=== PATIENT | male | born 1950 | race Caucasian/White ===

== ENCOUNTER 2018-04-26 12:28 | Inpatient (IN) | payer OTHER ==
[2018-04-26 13:06] VITALS: BMI 21.8
--- NOTE | 2018-04-26 16:51 | HP ---
CIWA Score - Admission Criteria OASAS Guidelines: Admission for Medically Managed Detox: Requires at least one of the followin. CIWA greater than 12 2. Seizures within the past 24 hours 3. Delirium tremens within the past 24 hours 4. Hallucinations within the past 24 hours 5. Acute intervention needed for co occurring medical disorder 6. Acute intervention needed for co occurring psychiatric disorder 7. Severe withdrawal that cannot be handled at a lower level of care (continued vomiting, continued diarrhea, abnormal vital signs) requiring intravenous medication and/or fluids 8. Admission ROS [facility] Chief Complaint: "I was referred by the hospital to come to rehab" Allergies/Adverse Reactions: Allergies Allergy/AdvReac Type Severity Reaction Status Date / Time fish derived [Fish derived] Allergy Mild Hives Verified 04/26/18 15:16 No Known Drug Allergies Allergy Verified 04/26/18 15:16 History of Present Illness: Patient was discharged from the [facility] today after completing detox for alcohol, heroin, cocaine and THC. Patient reports he was referred by [facility] to attend rehab. Patient currently on Suboxone 8mg TID. I - stop reviewed last rx for Suboxone 8mg TID x 30 day supply dispensed 03/22/18, as per patient he has new rx at to fill at the pharmacy for current month. PMHX : Hep C, Liver Cirrhosis, HIV +, depression. Denies suicidal / homicidal ideation. Denies hx of suicide attempt. Denies hx seizures or blackouts. Exam Limitations: No Limitations - Ebola screening Have you traveled outside of the country in the last 21 days: No Have you had contact with anyone from an Ebola affected area: No Have you been sick,other than usual withdrawal symptoms: No - Review of Systems Constitutional: Loss of Appetite, Weakness, Unexplained wgt Loss (10lbs) EENT: reports: Dental Problems (poor dentition) Respiratory: reports: SOB with Exertion Cardiac: reports: No Symptoms Reported GI: reports: Nausea, Poor Appetite, Abdominal cramping : reports: Burning Musculoskeletal: reports: Back Pain Integumentary: reports: No Symptoms Reported Neuro: reports: Headache Endocrine: reports: No Symptoms Reported Hematology: reports: No Symptoms Reported Psychiatric: reports: Orientated x3, Anxious, Depressed Other Systems: Reviewed and Negative Patient History - Patient Medical History Hx Anemia: No Hx Asthma: Yes (Pt is on Albuterol IH prn) Hx Chronic Obstructive Pulmonary Disease (COPD): No Hx Cancer: No Hx Cardiac Disorders: No Hx Congestive Heart Failure: No Hx Hypertension: No Hx Hypercholesterolemia: No Hx Pacemaker: No HX Cerebrovascular Accident: No Hx Seizures: No Hx Dementia: No Hx Diabetes: No Hx Gastrointestinal Disorders: No Hx Liver Disease: Yes (cirrhosis) Hx Genitourinary Disorders: No Hx Sexually Transmitted Disorders: Yes (HIV+) Hx Renal Disease (ESRD): No Hx Thyroid Disease: Yes (? hypothyroid ) Hx Human Immunodeficiency Virus (HIV): Yes (since 1989, t cells about 436, Biktarvy) Hx Hepatitis C: Yes (treated ) Hx Depression: Yes Hx Suicide Attempt: No Hx Bipolar Disorder: No Hx Schizophrenia: No - Patient Surgical History Past Surgical History: No Hx Neurologic Surgery: No Hx Cataract Extraction: No Hx Cardiac Surgery: No Hx Lung Surgery: No Hx Breast Surgery: No Hx Breast Biopsy: No Hx Abdominal Surgery: No Hx Appendectomy: No Hx Cholecystectomy: No Hx Genitourinary Surgery: No Hx Section: No Hx Orthopedic Surgery: Yes (fractured right foot 04/2014 - 4 pins) Hx Hysterectomy: No Anesthesia Reaction: No - PPD History Documented Results: Negative w/o proof Date: 04/28/14 PPD to be Administered?: No - Smoking Cessation Smoking history: Current every day smoker Have you smoked in the past 12 months: Yes Aproximately how many cigarettes per day: 20 Cigars Per Day: 0 Hx Chewing Tobacco Use: No Initiated information on smoking cessation: Yes 'Breaking Loose' booklet given: 04/26/18 - Substance & Tx. History Hx Alcohol Use: Yes Hx Substance Use: Yes Substance Use Type: Alcohol, Cocaine, Heroin Hx Substance Use Treatment: Yes (Completed detox [facility] ) - Substances Abused Heroin Route: Injection Frequency: Daily Amount used: 4 BAGS Age of first use: 17 Date of Last Use: 04/23/18 Cocaine Route: Injection Frequency: Daily Amount used: 5-6 BAGS Age of first use: 17 Date of Last Use: 04/23/18 Alcohol Route: Oral Frequency: 3-6 times per week Amount used: 1 PINT OF DAVID Age of first use: 28 Date of Last Use: 04/23/18 Family Disease History - Family Disease History Family Disease History: Other: Father (alcohol) Admission Physical Exam BHS - Vital Signs Vital Signs: Vital Signs - 24 hr 04/26/18 12:59 Temperature 98.5 F Pulse Rate 81 Respiratory 18 Rate Blood Pressure 132/74 - Physical General Appearance: Yes: Appropriately Dressed, Thin, Anxious HEENTM: Yes: EOMI, Hearing grossly Normal, Normal ENT Inspection, Normocephalic , Normal Voice, ANGEL, Pharynx Normal, Tm's normal, Other (poor dentition) Respiratory: Yes: Chest Non-Tender, Lungs Clear, Normal Breath Sounds, No Respiratory Distress, No Accessory Muscle Use Neck: Yes: Within Normal Limits Breast: Yes: Breast Exam Deferred Cardiology: Yes: Regular Rhythm, Regular Rate Abdominal: Yes: Normal Bowel Sounds, Non Tender, Flat, Soft Genitourinary: Yes: Within Normal Limits Back: Yes: Normal Inspection Musculoskeletal: Yes: Within Normal Limits Extremities: Yes: Within Normal Limits 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: Yes: licensed nursing assistant II-XII NML intact, Fully Oriented, Alert, Motor Strength 5/5, Depressed Affect Integumentary: Yes: Normal Color, Dry, Warm Lymphatic: Yes: Within Normal Limits - Diagnostic (1) Opioid dependence on agonist therapy Current Visit: Yes Status: Chronic Comment: on Suboxone 8mg-2mg SL film TID (2) Alcohol dependence Current Visit: Yes Status: Active (3) cocaine dependence Current Visit: Yes Status: Active (4) Asthma Current Visit: Yes Status: Chronic Qualifiers: Asthma severity: mild Asthma persistence: intermittent Asthma complication type: uncomplicated Qualified Code(s): J45.20 - Mild intermittent asthma, uncomplicated (5) Hepatitis C Current Visit: Yes Status: Chronic Qualifiers: Viral hepatitis chronicity: chronic (6) Nicotine dependence Current Visit: Yes Status: Chronic Qualifiers: Nicotine product type: cigarettes (7) Recent weight loss Current Visit: Yes Status: Chronic (8) HIV (human immunodeficiency virus infection) Current Visit: Yes Status: Chronic Qualifiers: HIV symptom status: unspecified Qualified Code(s): B20 - Human immunodeficiency virus [HIV] disease BHS Breath Alcohol Content Breath Alcohol Content: 0 Urine Drug Screen - Results Drug Screen Negative: No Urine Drug Screen Results: BUP-Suboxone Inpatient Rehab Admission - Rehab Decision to Admit Inpatient rehab admission?: Yes - Initial Determination Are CD services needed?: Yes Free of communicable disease: Yes Not in need of hospitalization: Yes - Rehab Admission Criteria Previous failed treatment: Yes Poor recovery environment: Yes Comorbidities: Yes Lacks judgement: Yes Patient is meeting Inpatient Rehab admission criteria:: Yes
[2018-04-26] MEDS ORDERED: ALBUTEROL SO4 8 GM HFA INHALER IH PRN (18:23)
[2018-04-26] MEDS ORDERED: IBUPROFEN 400 MG TABLET (FP) PO PRN (18:49)
[2018-04-26] MEDS ORDERED: NICOTINE POLACRILEX 2 MG GUM BC PRN (18:49)
[2018-04-26] MEDS ORDERED: MAGNESIUM CITRATE 300 ML BOTTLE PO PRN (18:49)
[2018-04-26] MEDS ORDERED: MENTHOL/PHENOL 1 EACH UD MM PRN (18:49)
[2018-04-26] MEDS ORDERED: MAGNESIUM HYDROX 2400MG/30ML ORAL SUSPENSION 30 ML CUP PO PRN (18:49)
[2018-04-26] MEDS ORDERED: hydrOXYzine PAMOATE 50 MG CAPSULE (FP) PO PRN (18:49)
[2018-04-26] MEDS ORDERED: MAG HYDROX/AL HYDROX/SIMETH 30 ML UNIT-DOSE CUP PO PRN (18:49)
[2018-04-26] MEDS ORDERED: LOPERAMIDE HCL 2 MG CAPSULE PO PRN (18:49)
[2018-04-26] MEDS ORDERED: ACETAMINOPHEN 325 MG TABLET (FP) PO PRN (18:49)
[2018-04-26] MEDS ORDERED: P-EPHED 60MG/TRIPROLIDI 2.5MG TABLET PO PRN (18:49)
[2018-04-26] MEDS: THIAMINE HCL 100 MG TABLET (FP) PO SCH (21:37)
[2018-04-26] MEDS: MELATONIN 5 MG TABLETS PO PRN (22:57)
[2018-04-26 23:08] LABS: URINE APPEARANCE CLEAR; URINE BILIRUBIN NEGATIVE (<2.0 mg/dL); URINE COLOR YELLOW; URINE GLUCOSE (UA) NEGATIVE (NEGATIVE); URINE KETONE NEGATIVE (NEGATIVE); URINE LEUK ESTERASE NEGATIVE (NEGATIVE); URINE NITRITE NEGATIVE (NEGATIVE); URINE PROTEIN NEGATIVE (NEGATIVE); URINE UROBILINOGEN NEGATIVE mg/dL (0.2-1.0)
[2018-04-27] MEDS: BUPRENORPHINE/NALOXONE 8 MG/2 MG FILM PACKET SL SCH ×3 (06:26→21:42)
[2018-04-27] MEDS: NICOTINE 21 MG/24 HOURS TOPICAL PATCH TD SCH (10:45)
[2018-04-27] MEDS: PRENATAL VITAMINS W/ FOLIC ACID TABLET (FP) PO SCH (10:45)
[2018-04-27] MEDS: guaiFENesin/D-METHORPHAN HB 10 ML UNIT-DOSE CUPS PO PRN ×2 (10:46→23:31)
--- NOTE | 2018-04-27 11:35 | PN ---
[facility] Progress Note Note: PT IS A 67 Y/O MALE ADMITTED ON 04/26/18(SEE H/P). PT REPORTS HE IS ON HIV MEDICATION BIKTARVY 50-200-25 MG WHICH HE REPORTS LAST DOSE ON 04/21/18 BEFORE GOING INTO DETOX AT [facility] ON 04/22/18. PT REPORTS HE IS COMPLIANT WITH HIS MEDICATION EXCEPT HE DID NOT GET IT IN DETOX DUE TO AVAILABILITY. THIS MARINE EQUIPMENT DESIGN ENGINEER CALLED PT'S HOME PHARMACY, [facility] AND [facility] AND SAYS PT HAS RX FOR BICTARVY WAITING IN HIS PHARMACY SINCE 04/26/18. PT ALSO HAS SUBOXONE RX POSTED IN PHARMACY ON . PT WILL DYE WEIGHER FROM HIS PHARMACY AND NOT BE NEEDING RX ON DISCHARGE. Vital Signs 04/27/18 06:46 Temperature 97.8 F Pulse Rate 89 Respiratory 17 Rate Blood Pressure 118/71 Laboratory Tests 04/26/18 22:00 Urine Color Yellow Urine Appearance Clear Urine pH 8.0 D Ur Specific [place] 1.015 Urine Protein Negative Urine Glucose (UA) Negative Urine Ketones Negative Urine Blood Negative Urine Nitrite Negative Urine Bilirubin Negative Urine Urobilinogen Negative Ur Leukocyte Esterase Negative OTHER LABS PENDING PLAN:FOLLOW UP WITH PCP GEMINI JUAN FOR SUBOXONE TREATMENT AFTER DISCHARGE PH:[phone] FOLLOW UP WITH PCP/ [facility] NEEDED.
[2018-04-27 12:19] LABS: HEMOGLOBIN 13.2 GM/dL (11.7-16.9); MCH 30.8 pg (25.7-33.7); MCHC 33.9 g/dl (32.0-35.9); MEAN CELL VOLUME 90.9 fl (80-96); MEAN PLT VOLUME 8.4 fl (7.5-11.1); PLATELET COUNT 188 K/MM3 (134-434); RDW 13.1 % (11.9-15.9); WHITE BLOOD COUNT 3.9 K/mm3 (4.0-10.0)
[2018-04-27 12:34] LABS: ALBUMIN 3.9 g/dl (3.4-5.0); ALK PHOS 99 U/L (45-117); ANION GAP 8 MMOL/L (8-16); BILIRUBIN,TOTAL 0.2 mg/dL (0.2-1); BLOOD UREA NITROGEN 24 mg/dL (7-18); CALCIUM 9.3 mg/dL (8.5-10.1); CHLORIDE 104 mmol/L (98-107); CO2 29 mmol/L (21-32); CREATININE 1.3 mg/dL (0.55-1.3); GLUCOSE,RANDOM 114 mg/dL (74-106); POTASSIUM 4.1 mmol/L (3.5-5.1); SGOT/AST 22 U/L (15-37); SGPT/ALT 22 U/L (13-61); SODIUM 141 mmol/L (136-145); TOT PROT 7.8 g/dl (6.4-8.2)
[2018-04-27] MEDS: BICTEGRAV/EMTRICIT/TENOFOV (BIKTARVY) 50-200-25 MG TABLET PO SCH (12:50)
--- NOTE | 2018-04-27 16:47 | EKG ---
Test Reason : Blood Pressure : / mmHG Vent. Rate : 092 BPM Atrial Rate : 092 BPM P-R Int : 164 ms QRS Dur : 090 ms QT Int : 344 ms P-R-T Axes : 072 010 064 degrees QTc Int : 425 ms NORMAL SINUS RHYTHM NORMAL ECG NO PREVIOUS ECGS AVAILABLE Confirmed by DORETHA VILLALOBOS MD ([id number]) on 04/27/2018 4:47:20 PM Referred By: Confirmed By:DORETHA VILLALOBOS MD
[2018-04-27] MEDS: THIAMINE HCL 100 MG TABLET (FP) PO SCH (21:42)
[2018-04-28] MEDS: BUPRENORPHINE/NALOXONE 8 MG/2 MG FILM PACKET SL SCH ×3 (06:14→21:34)
[2018-04-28] MEDS: BICTEGRAV/EMTRICIT/TENOFOV (BIKTARVY) 50-200-25 MG TABLET PO SCH (10:14)
[2018-04-28] MEDS: PRENATAL VITAMINS W/ FOLIC ACID TABLET (FP) PO SCH (10:14)
[2018-04-28] MEDS: NICOTINE 21 MG/24 HOURS TOPICAL PATCH TD SCH (10:14)
[2018-04-28] MEDS: THIAMINE HCL 100 MG TABLET (FP) PO SCH (21:34)
[2018-04-28] MEDS: MELATONIN 5 MG TABLETS PO PRN (21:35)
[2018-04-29] MEDS: BUPRENORPHINE/NALOXONE 8 MG/2 MG FILM PACKET SL SCH ×3 (06:29→22:00)
[2018-04-29] MEDS: [UNRECOGNIZED DRUG - OTHER] PO SCH (10:16)
[2018-04-29] MEDS: NICOTINE 21 MG/24 HOURS TOPICAL PATCH TD SCH (10:16)
[2018-04-29] MEDS: PRENATAL VITAMINS W/ FOLIC ACID TABLET (FP) PO SCH (10:16)
[2018-04-29] MEDS: THIAMINE HCL 100 MG TABLET (FP) PO SCH (22:00)
[2018-04-30] MEDS: BUPRENORPHINE/NALOXONE 8 MG/2 MG FILM PACKET SL SCH ×3 (06:20→21:46)
[2018-04-30 07:11] VITALS: BP 139/84; PULSE 71; TEMP 98.3
[2018-04-30] MEDS: NICOTINE 21 MG/24 HOURS TOPICAL PATCH TD SCH (10:23)
[2018-04-30] MEDS: PRENATAL VITAMINS W/ FOLIC ACID TABLET (FP) PO SCH (10:23)
[2018-04-30] MEDS: [UNRECOGNIZED DRUG - OTHER] PO SCH (10:24)
[2018-04-30] MEDS: MELATONIN 5 MG TABLETS PO PRN (21:45)
[2018-04-30] MEDS: THIAMINE HCL 100 MG TABLET (FP) PO SCH (21:46)
[2018-05-01] MEDS: BUPRENORPHINE/NALOXONE 8 MG/2 MG FILM PACKET SL SCH (06:10)
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
== END 2018-05-01 06:45 | disposition home or self-care (01) | DRG 895 ==
LOC: YASAS 12:28 → Y5N 18:03
PROVIDERS: ADMIT Neuromusculoskeletal Medicine & OMM; ATTEND Neuromusculoskeletal Medicine & OMM
PROC: HZ42ZZZ Group Counseling for Substance Abuse Treatment, Cognitive-Behavioral (ICD-10-PCS; principal; 2018-04-24)
DX: F10.20 Alcohol dependence, uncomplicated (principal); F11.20 Opioid dependence, uncomplicated; F14.20 Cocaine dependence, uncomplicated; B20 Human immunodeficiency virus [HIV] disease; F17.210 Nicotine dependence, cigarettes, uncomplicated; J45.20 Mild intermittent asthma, uncomplicated; B18.2 Chronic viral hepatitis C; Z91.013 Allergy to seafood
CPT/HCPCS: 36415; 80053; 81003; 85027; 86593; 93005; 93010

== ENCOUNTER 2018-08-09 12:26 | Inpatient (IN) | payer OTHER | END 2018-08-12 12:50 | disposition left against medical advice (07) | LOC: YASAS 12:26 → Y6N 16:59 ==

== ENCOUNTER 2018-08-29 14:27 | Inpatient (IN) | payer OTHER ==
[2018-08-29 16:56] VITALS: BMI 19.9
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
[2018-08-29] MEDS ORDERED: chlordiazePOXIDE HCL 25 MG CAPSULE PO PRN (20:36)
[2018-08-29] MEDS ORDERED: MAG HYDROX/AL HYDROX/SIMETH 30 ML UNIT-DOSE CUP PO PRN (20:36)
[2018-08-29] MEDS ORDERED: hydrOXYzine PAMOATE 25 MG CAPSULE (FP) PO PRN (20:36)
[2018-08-29] MEDS ORDERED: IBUPROFEN 400 MG TABLET (FP) PO PRN (20:36)
[2018-08-29] MEDS ORDERED: METHOCARBAMOL 500 MG TABLET PO PRN (20:36)
[2018-08-29] MEDS ORDERED: ACETAMINOPHEN 325 MG TABLET (FP) PO PRN ×2 (20:36)
[2018-08-29] MEDS ORDERED: BISMUTH SUBSALICYLATE 524 MG/30 ML UD PO PRN (20:36)
[2018-08-29] MEDS ORDERED: MENTHOL/PHENOL 1 EACH UD MM PRN (20:36)
[2018-08-29] MEDS ORDERED: MAGNESIUM HYDROX 2400MG/30ML ORAL SUSPENSION 30 ML CUP PO PRN (20:36)
[2018-08-29] MEDS ORDERED: chlordiazePOXIDE HCL 25 MG CAPSULE PO ONE (20:36)
[2018-08-29] MEDS ORDERED: MAGNESIUM CITRATE 300 ML BOTTLE PO PRN (20:36)
[2018-08-29] MEDS ORDERED: ALBUTEROL SO4 8 GM HFA INHALER IH PRN (20:38)
[2018-08-29] MEDS: chlordiazePOXIDE HCL 25 MG CAPSULE PO SCH (22:34)
[2018-08-29] MEDS: THIAMINE HCL 100 MG TABLET (FP) PO SCH (22:34)
[2018-08-30] MEDS: chlordiazePOXIDE HCL 25 MG CAPSULE PO SCH ×4 (06:05→22:20)
--- NOTE | 2018-08-30 09:58 | PN ---
S CIWA - CIWA Score Nausea/Vomitin-No Nausea/No Vomiting Muscle Tremors: 4-Moderate,w/Arms Extend Anxiety: 2 Agitation: 3 Paroxysmal Sweats: 2 Orientation: 0-Oriented Tacttile Disturbances: 0-None Auditory Disturbances: 0-None Visual Disturbances: 0-None Headache: 0-None Present CIWA-Ar Total Score: 11 S Progress Note (SOAP) Subjective: sweats shakes interrupted sleep body aches Objective: 08/30/18 09:57 Vital Signs Temperature 97.9 F 08/30/18 09:40 Pulse Rate 77 08/30/18 09:40 Respiratory Rate 16 08/30/18 09:40 Blood Pressure 101/55 L 08/30/18 09:40 O2 Sat by Pulse Oximetry (%) labs pending aaox3 ambulating no acute distress Assessment: 08/30/18 09:58 withdrawal sx Plan: continue detox increase fluids pending labs
[2018-08-30] MEDS: PATIENT'S OWN MEDICATION (NON-FORMULARY) (Bictegrav/Emtricit/Tenofov Ala 1 EACH) PO SCH (10:12)
[2018-08-30] MEDS: NICOTINE 21 MG/24 HOURS TOPICAL PATCH TD SCH (10:12)
[2018-08-30] MEDS: PRENATAL VITAMINS W/ FOLIC ACID TABLET (FP) PO SCH (10:12)
[2018-08-30 12:32] LABS: HEMATOCRIT 41.7 % (35.4-49); HEMOGLOBIN 13.9 GM/dL (11.7-16.9); MCH 29.9 pg (25.7-33.7); MCHC 33.3 g/dl (32.0-35.9); MEAN CELL VOLUME 89.9 fl (80-96); RBC 4.63 M/mm3 (4.00-5.60); RDW 14.4 % (11.9-15.9); WHITE BLOOD COUNT 3.6 K/mm3 (4.0-10.0)
[2018-08-30 12:35] LABS: PLATELET COUNT 183 K/MM3 (134-434)
[2018-08-30 12:38] LABS: ALBUMIN 3.6 g/dl (3.4-5.0); BILIRUBIN,TOTAL 0.4 mg/dL (0.2-1); BLOOD UREA NITROGEN 11.8 mg/dL (7-18); CALCIUM 9.1 mg/dL (8.5-10.1); CREATININE 1.2 mg/dL (0.55-1.3); POTASSIUM 4.3 mmol/L (3.5-5.1)
[2018-08-30 18:10] LABS: EPI CELLS 1.1 /HPF (0-5/HPF); HYALINE CASTS 20 /lpf (0-8); URINE APPEARANCE TURBID; URINE BACTERIA 2.5 /hpf (NEGATIVE); URINE BILIRUBIN 1+ (NEGATIVE); URINE COLOR DK YELLOW; URINE GLUCOSE (UA) NEGATIVE (NEGATIVE); URINE KETONE TRACE (NEGATIVE); URINE LEUK ESTERASE NEGATIVE (NEGATIVE); URINE NITRITE NEGATIVE (NEGATIVE); URINE PROTEIN 1+ (NEGATIVE); URINE RBC 8 /hpf (0-4); URINE WBC 1 /hpf (0-5)
[2018-08-30 18:57] LABS: URINE CRYSTALS SEE COMMEN /hpf
[2018-08-30] MEDS: MELATONIN 5 MG TABLETS PO PRN (22:20)
[2018-08-30] MEDS: THIAMINE HCL 100 MG TABLET (FP) PO SCH (22:21)
[2018-08-31] MEDS: chlordiazePOXIDE HCL 25 MG CAPSULE PO SCH ×3 (05:52→17:33)
[2018-08-31] MEDS: PRENATAL VITAMINS W/ FOLIC ACID TABLET (FP) PO SCH (10:42)
[2018-08-31] MEDS: NICOTINE 21 MG/24 HOURS TOPICAL PATCH TD SCH (10:42)
[2018-08-31] MEDS: PATIENT'S OWN MEDICATION (NON-FORMULARY) (Bictegrav/Emtricit/Tenofov Ala 1 EACH) PO SCH (10:43)
[2018-08-31] MEDS ORDERED: ONDANSETRON *ODT* 4 MG TABLET SL PRN (11:09)
--- NOTE | 2018-08-31 11:09 | PN ---
[facility] CIWA - CIWA Score Nausea/Vomitin-No Nausea/No Vomiting Muscle Tremors: 3 Anxiety: 1-Mildly Anxious Agitation: 2 Paroxysmal Sweats: 3 Orientation: 0-Oriented Tacttile Disturbances: 0-None Auditory Disturbances: 0-None Visual Disturbances: 0-None Headache: 0-None Present CIWA-Ar Total Score: 9 S Progress Note (SOAP) Subjective: nausea sweats chills interrupted sleep Objective: 08/31/18 11:08 Vital Signs Temperature 98.1 F 08/31/18 09:30 Pulse Rate 63 08/31/18 09:30 Respiratory Rate 18 08/31/18 09:30 Blood Pressure 119/74 08/31/18 09:30 O2 Sat by Pulse Oximetry (%) Laboratory Tests 08/30/18 08/30/18 08/30/18 07:30 07:30 07:30 WBC 3.6 L RBC 4.63 Hgb 13.9 Hct 41.7 MCV 89.9 MCH 29.9 MCHC 33.3 RDW 14.4 Plt Count 183 D MPV 8.0 Sodium 140 Potassium 4.3 Chloride 106 Carbon Dioxide 31 Anion Gap 4 L BUN 11.8 Creatinine 1.2 Est GFR (CKD-EPI)AfAm 72.59 Est GFR (CKD-EPI)NonAf 62.63 Random Glucose 82 Calcium 9.1 Total Bilirubin 0.4 AST 21 ALT 18 Alkaline Phosphatase 111 Total Protein 7.0 Albumin 3.6 Urine Color Urine Appearance Urine pH Ur Specific [place] Urine Protein Urine Glucose (UA) Urine Ketones Urine Blood Urine Nitrite Urine Bilirubin Urine Urobilinogen Ur Leukocyte Esterase Urine WBC (Auto) Urine RBC (Auto) Urine Casts (Auto) U Epithel Cells (Auto) Urine Crystals (Auto) Urine Bacteria (Auto) RPR Titer Nonreactive 08/30/18 11:07 WBC RBC Hgb Hct MCV MCH MCHC RDW Plt Count MPV Sodium Potassium Chloride Carbon Dioxide Anion Gap BUN Creatinine Est GFR (CKD-EPI)AfAm Est GFR (CKD-EPI)NonAf Random Glucose Calcium Total Bilirubin AST ALT Alkaline Phosphatase Total Protein Albumin Urine Color Dk yellow Urine Appearance Turbid Urine pH 5.0 D Ur Specific [place] 1.029 Urine Protein 1+ H Urine Glucose (UA) Negative Urine Ketones Trace H Urine Blood Negative Urine Nitrite Negative Urine Bilirubin 1+ H Urine Urobilinogen 1.0 Ur Leukocyte Esterase Negative Urine WBC (Auto) 1 Urine RBC (Auto) 8 Urine Casts (Auto) 20 U Epithel Cells (Auto) 1.1 Urine Crystals (Auto) See commen Urine Bacteria (Auto) 2.5 RPR Titer labs noted aaox3 ambulating no acute distress repeat u/a Assessment: 08/31/18 11:09 withdrawal sx Plan: continue detox increase fluids zofran prn repeat u/a
[2018-08-31] MEDS: MELATONIN 5 MG TABLETS PO PRN (22:04)
[2018-08-31] MEDS: chlordiazePOXIDE HCL 10 MG CAPSULE PO SCH (22:04)
[2018-08-31] MEDS: THIAMINE HCL 100 MG TABLET (FP) PO SCH (22:04)
[2018-08-31] MEDS ORDERED: chlordiazePOXIDE HCL 10 MG CAPSULE PO PRN (23:00)
[2018-09-01] MEDS: chlordiazePOXIDE HCL 10 MG CAPSULE PO SCH (06:03)
[2018-09-01 06:19] VITALS: TEMP 97.2
--- NOTE | 2018-09-01 09:10 | DS ---
[facility] Detox Discharge Summary Admission Date: 08/29/18 - Physical Exam Results Vital Signs: Vital Signs Temperature 97.2 F L 09/01/18 06:00 Pulse Rate 63 09/01/18 06:00 Respiratory Rate 16 09/01/18 06:00 Blood Pressure 133/71 09/01/18 06:00 O2 Sat by Pulse Oximetry (%) - Medication Discharge Medications: Ambulatory Orders Albuterol Sulfate Inhaler - [Ventolin HFA Inhaler -] 1 inh IH Q4H PRN #1 inh Bictegrav/Emtricit/Tenofov Ala [Biktarvy 50-200-25 mg Tablet] 1 each PO DAILY
--- NOTE | 2018-09-01 09:15 | DS ---
[facility] Detox Discharge Summary Admission Date: 08/29/18 Discharge Date: 09/01/18 - History Present History: Alcohol Dependence, Opioid Dependence - Physical Exam Results Vital Signs: Vital Signs Temperature 97.2 F L 09/01/18 06:00 Pulse Rate 63 09/01/18 06:00 Respiratory Rate 16 09/01/18 06:00 Blood Pressure 133/71 09/01/18 06:00 O2 Sat by Pulse Oximetry (%) - Treatment Hospital Course: Detox Protocol Followed - Medication Discharge Medications: Ambulatory Orders Albuterol Sulfate Inhaler - [Ventolin HFA Inhaler -] 1 inh IH Q4H PRN #1 inh Bictegrav/Emtricit/Tenofov Ala [Biktarvy 50-200-25 mg Tablet] 1 each PO DAILY - Diagnosis (1) Alcohol dependence with uncomplicated withdrawal Current Visit: No Status: Chronic (2) Opioid dependence with withdrawal Current Visit: No Status: Acute (3) cocaine dependence Current Visit: Yes Status: Acute (4) HIV (human immunodeficiency virus infection) Current Visit: Yes Status: Chronic Qualifiers: HIV symptom status: unspecified Qualified Code(s): B20 - Human immunodeficiency virus [HIV] disease (5) Hepatitis C Current Visit: Yes Status: Chronic Qualifiers: Viral hepatitis chronicity: chronic Hepatic coma status: without hepatic coma Qualified Code(s): B18.2 - Chronic viral hepatitis C (6) Nicotine dependence Current Visit: Yes Status: Chronic Qualifiers: Nicotine product type: cigarettes Substance use status: uncomplicated Qualified Code(s): F17.210 - Nicotine dependence, cigarettes, uncomplicated - AMA Did Patient Leave Against Medical Advice: Yes (Pt states he can't handle thew food and is not coming back. )
[2018-09-01] MEDS: PRENATAL VITAMINS W/ FOLIC ACID TABLET (FP) PO SCH (09:36)
[2018-09-01] MEDS: PATIENT'S OWN MEDICATION (NON-FORMULARY) (Bictegrav/Emtricit/Tenofov Ala 1 EACH) PO SCH (09:37)
[2018-09-01] MEDS: NICOTINE 21 MG/24 HOURS TOPICAL PATCH TD SCH (09:37)
[2018-09-01 09:44] VITALS: BP 132/73; PULSE 76
[2018-09-01 10:29] LABS: EPI CELLS 0.1 /HPF (0-5/HPF); HYALINE CASTS 4 /lpf (0-8); URINE APPEARANCE CLEAR; URINE BACTERIA 21.8 /hpf (NEGATIVE); URINE BILIRUBIN NEGATIVE (NEGATIVE); URINE COLOR YELLOW; URINE GLUCOSE (UA) NEGATIVE (NEGATIVE); URINE KETONE NEGATIVE (NEGATIVE); URINE LEUK ESTERASE 2+ (NEGATIVE); URINE NITRITE NEGATIVE (NEGATIVE); URINE PROTEIN NEGATIVE (NEGATIVE); URINE RBC 1 /hpf (0-4); URINE UROBILINOGEN 0.2 mg/dL (0.2-1.0); URINE WBC 33 /hpf (0-5)
[2018-09-01 10:51] LABS: URINE CRYSTALS CA OXALATE /hpf
[2018-09-01] MEDS ORDERED: chlordiazePOXIDE HCL 10 MG CAPSULE PO SCH (23:00)
== END 2018-09-01 09:58 | disposition left against medical advice (07) | DRG 894 ==
LOC: YASAS 14:27 → Y6N 21:35
PROVIDERS: ADMIT Surgery; ATTEND Surgery
PROC: HZ2ZZZZ Detoxification Services for Substance Abuse Treatment (ICD-10-PCS; principal; 2018-08-29)
DX: F10.230 Alcohol dependence with withdrawal, uncomplicated (principal); F14.20 Cocaine dependence, uncomplicated; F11.23 Opioid dependence with withdrawal; F12.20 Cannabis dependence, uncomplicated; F17.210 Nicotine dependence, cigarettes, uncomplicated; Z21 Asymptomatic human immunodeficiency virus [HIV] infection status; B18.2 Chronic viral hepatitis C; J45.909 Unspecified asthma, uncomplicated; K74.60 Unspecified cirrhosis of liver
CPT/HCPCS: 36415; 80053; 81003; 85027; 86593; Q0162

== ENCOUNTER 2019-04-24 12:37 | Inpatient (IN) | payer OTHER ==
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
[2019-04-24] MEDS ORDERED: MELATONIN 5 MG TABLETS PO PRN (14:57)
[2019-04-24] MEDS ORDERED: ACETAMINOPHEN 325 MG TABLET (FP) PO PRN ×2 (14:57)
[2019-04-24] MEDS ORDERED: hydrOXYzine PAMOATE 25 MG CAPSULE (FP) PO PRN (14:57)
[2019-04-24] MEDS ORDERED: IBUPROFEN 400 MG TABLET (FP) PO PRN (14:57)
[2019-04-24] MEDS ORDERED: cloNIDine HCL 0.1 MG TABLET PO PRN (14:57)
[2019-04-24] MEDS ORDERED: MAGNESIUM HYDROX 2400MG/30ML ORAL SUSPENSION 30 ML CUP PO PRN (14:57)
[2019-04-24] MEDS ORDERED: MAG HYDROX/AL HYDROX/SIMETH 30 ML UNIT-DOSE CUP PO PRN (14:57)
[2019-04-24] MEDS ORDERED: BISMUTH SUBSALICYLATE 524 MG/30 ML UD PO PRN (14:57)
[2019-04-24] MEDS ORDERED: chlordiazePOXIDE HCL 25 MG CAPSULE PO PRN (14:57)
[2019-04-24] MEDS ORDERED: MAGNESIUM CITRATE 300 ML BOTTLE PO PRN (14:57)
[2019-04-24] MEDS ORDERED: MENTHOL/PHENOL 1 EACH UD MM PRN (14:57)
[2019-04-24] MEDS ORDERED: METHOCARBAMOL 500 MG TABLET PO PRN (14:57)
[2019-04-24] MEDS ORDERED: ALBUTEROL SO4 HFA INHALER IH PRN (15:00)
[2019-04-24 15:23] VITALS: BMI 22.2
[2019-04-24] MEDS ORDERED: METHADONE HCL 10 MG TABLET (FOR DETOX USE ONLY) PO ONE (15:25)
[2019-04-24] MEDS: NICOTINE 14 MG/24 HOURS TOPICAL PATCH TD SCH (16:05)
[2019-04-24] MEDS: chlordiazePOXIDE HCL 25 MG CAPSULE PO SCH ×2 (17:17→22:15)
[2019-04-24 17:48] LABS: HEMOGLOBIN 12.3 GM/dL (11.7-16.9); MCH 29.5 pg (25.7-33.7); MCHC 33.2 g/dl (32.0-35.9); MEAN CELL VOLUME 88.8 fl (80-96); MEAN PLT VOLUME 8.4 fl (7.5-11.1); PLATELET COUNT 187 K/MM3 (134-434); RBC 4.17 M/mm3 (4.00-5.60); RDW 13.8 % (11.9-15.9); WHITE BLOOD COUNT 4.7 K/mm3 (4.0-10.0)
[2019-04-24 18:01] LABS: ALBUMIN 4.2 g/dl (3.4-5.0); BILIRUBIN,TOTAL 0.4 mg/dL (0.2-1); BLOOD UREA NITROGEN 19.8 mg/dL (7-18); CREATININE 1.5 mg/dL (0.55-1.3); POTASSIUM 4.1 mmol/L (3.5-5.1)
[2019-04-24] MEDS: THIAMINE HCL 100 MG TABLET (FP) PO SCH (22:15)
[2019-04-25] MEDS: chlordiazePOXIDE HCL 25 MG CAPSULE PO SCH ×4 (05:41→22:10)
[2019-04-25] MEDS ORDERED: METHADONE HCL 10 MG TABLET (FOR DETOX USE ONLY) ONE (09:51)
[2019-04-25] MEDS ORDERED: METHADONE HCL 5 MG TABLET (FOR DETOX USE ONLY) ONE (09:51)
[2019-04-25] MEDS ORDERED: METHADONE (DETOX) 20 MG, METHADONE (DETOX) 5 MG PO ONE (10:00)
--- NOTE | 2019-04-25 10:32 | PN ---
S CIWA - CIWA Score Nausea/Vomitin Muscle Tremors: 2 Anxiety: 2 Agitation: 2 Paroxysmal Sweats: 1-Minimal Palms Moist Orientation: 0-Oriented Tacttile Disturbances: 1-Very Mild Itch/Numbness Auditory Disturbances: 0-None Visual Disturbances: 0-None Headache: 2-Mild CIWA-Ar Total Score: 12 [facility] COWS - Scale Resting Pulse: 0= [place] 80 or Below Sweatin= No chills or Flushing Restless Observation: 1= Difficult to Sit Still Pupil Size: 0= Normal to Room Light Bone or Joint Aches: 1= Mild Discomfort Runny Nose/ Eye Tearin= Nasal Congestion GI Upset > 30mins: 1= Stomach Cramp Tremor Observation of Outstretched Hands: 2= Slight Tremor Visible Yawning Observation: 1= 1-2x During Session Anxiety or Irritability: 2=Irritable/Anxious Goose Flesh Skin: 0=Smooth Skin COWS Score: 9 S Progress Note (SOAP) Subjective: alert,irritable,anxious,pain in the body and back,interrupted sleep Objective: 04/25/19 10:28 Vital Signs Temperature 98.2 F 04/25/19 09:06 Pulse Rate 68 04/25/19 09:06 Respiratory Rate 19 04/25/19 09:06 Blood Pressure 117/65 04/25/19 09:06 O2 Sat by Pulse Oximetry (%) Assessment: 04/25/19 10:29 withdrawal symptom Plan: continue detox methadone and librium,bun 19.8,creatinine 1.5,glucose 109, probably due to dehydration,encourage oral fluid, repeat bmp,fasting glucose in am
[2019-04-25] MEDS: PRENATAL VITAMINS W/ FOLIC ACID TABLET (FP) PO SCH (11:12)
[2019-04-25] MEDS: NICOTINE 14 MG/24 HOURS TOPICAL PATCH TD SCH (11:13)
[2019-04-25] MEDS: BICTEGRAV/EMTRICIT/TENOFOV (BIKTARVY) 50-200-25 MG TABLET PO SCH (11:25)
[2019-04-25] MEDS: THIAMINE HCL 100 MG TABLET (FP) PO SCH (22:10)
[2019-04-26] MEDS: chlordiazePOXIDE HCL 25 MG CAPSULE PO SCH ×4 (05:38→22:42)
[2019-04-26] MEDS ORDERED: METHADONE HCL 10 MG TABLET (FOR DETOX USE ONLY) PO ONE (10:00)
[2019-04-26 10:05] LABS: BLOOD UREA NITROGEN 17.3 mg/dL (7-18); CALCIUM 8.7 mg/dL (8.5-10.1); CREATININE 0.9 mg/dL (0.55-1.3); POTASSIUM 4.3 mmol/L (3.5-5.1)
--- NOTE | 2019-04-26 10:59 | PN ---
[facility] CIWA - CIWA Score Nausea/Vomitin Muscle Tremors: 2 Anxiety: 2 Agitation: 2 Paroxysmal Sweats: No Perspiration Orientation: 0-Oriented Tacttile Disturbances: 1-Very Mild Itch/Numbness Auditory Disturbances: 0-None Visual Disturbances: 0-None Headache: 2-Mild CIWA-Ar Total Score: 11 [facility] COWS - Scale Resting Pulse: 0= [place] 80 or Below Sweatin= No chills or Flushing Restless Observation: 1= Difficult to Sit Still Pupil Size: 1= Pupils >than Normal Bone or Joint Aches: 1= Mild Discomfort Runny Nose/ Eye Tearin= Nasal Congestion GI Upset > 30mins: 1= Stomach Cramp Tremor Observation of Outstretched Hands: 2= Slight Tremor Visible Yawning Observation: 1= 1-2x During Session Anxiety or Irritability: 2=Irritable/Anxious Goose Flesh Skin: 0=Smooth Skin COWS Score: 10 S Progress Note (SOAP) Subjective: alert,irritable,anxious,interrupted sleep,pain in the body and back Objective: 04/26/19 10:58 Vital Signs Temperature 97.7 F 04/26/19 10:03 Pulse Rate 68 04/26/19 10:03 Respiratory Rate 18 04/26/19 10:03 Blood Pressure 110/61 04/26/19 10:03 O2 Sat by Pulse Oximetry (%) Laboratory Results - last 24 hr 04/26/19 08:00 Sodium 140 Potassium 4.3 Chloride 108 H Carbon Dioxide 30 Anion Gap 2 L BUN 17.3 Creatinine 0.9 Est GFR (CKD-EPI)AfAm 102.79 Est GFR (CKD-EPI)NonAf 88.69 Random Glucose 90 Fasting Glucose 90 Calcium 8.7 Assessment: 04/26/19 10:59 withdrawal symptom Plan: continue detox methadone and librium regimen,fluid
[2019-04-26] MEDS: PRENATAL VITAMINS W/ FOLIC ACID TABLET (FP) PO SCH (11:27)
[2019-04-26] MEDS: NICOTINE 14 MG/24 HOURS TOPICAL PATCH TD SCH (11:28)
[2019-04-26] MEDS: THIAMINE HCL 100 MG TABLET (FP) PO SCH (22:42)
[2019-04-27] MEDS ORDERED: chlordiazePOXIDE HCL 10 MG CAPSULE PO PRN
[2019-04-27] MEDS: chlordiazePOXIDE HCL 10 MG CAPSULE PO SCH ×4 (05:44→23:42)
[2019-04-27] MEDS ORDERED: METHADONE HCL 5 MG TABLET (FOR DETOX USE ONLY) ONE (09:32)
[2019-04-27] MEDS ORDERED: METHADONE HCL 10 MG TABLET (FOR DETOX USE ONLY) ONE (09:33)
[2019-04-27] MEDS ORDERED: METHADONE (DETOX) 10 MG, METHADONE (DETOX) 5 MG PO ONE (10:00)
--- NOTE | 2019-04-27 10:51 | PN ---
[facility] CIWA - CIWA Score Nausea/Vomitin-Mild Nausea/No Vomiting Muscle Tremors: 1-None Visible, but [place] Anxiety: 2 Agitation: 2 Paroxysmal Sweats: 1-Minimal Palms Moist Orientation: 0-Oriented Tacttile Disturbances: 1-Very Mild Itch/Numbness Auditory Disturbances: 0-None Visual Disturbances: 0-None Headache: 1-Very Mild CIWA-Ar Total Score: 9 [facility]HS COWS - Scale Resting Pulse: 0= [place] 80 or Below Sweatin= No chills or Flushing Restless Observation: 1= Difficult to Sit Still Pupil Size: 1= Pupils >than Normal Bone or Joint Aches: 1= Mild Discomfort Runny Nose/ Eye Tearin= Nasal Congestion GI Upset > 30mins: 2= Nausea/Diarrhea Tremor Observation of Outstretched Hands: 1= Tremor [place], Not Seen Yawning Observation: 1= 1-2x During Session Anxiety or Irritability: 2=Irritable/Anxious Goose Flesh Skin: 0=Smooth Skin COWS Score: 10 [facility] Progress Note (SOAP) Subjective: alert,irritable,anxious,interrupted sleep,pain in the body and back Objective: 04/27/19 10:51 Vital Signs Temperature 97.3 F L 04/27/19 08:47 Pulse Rate 74 04/27/19 08:47 Respiratory Rate 18 04/27/19 08:47 Blood Pressure 116/58 L 04/27/19 08:47 O2 Sat by Pulse Oximetry (%) Assessment: 04/27/19 10:51 withdrawal symptom Plan: continue detox methadone and librium regimen
[2019-04-27] MEDS: NICOTINE 14 MG/24 HOURS TOPICAL PATCH TD SCH (10:53)
[2019-04-27] MEDS: PRENATAL VITAMINS W/ FOLIC ACID TABLET (FP) PO SCH (10:54)
[2019-04-27] MEDS: BICTEGRAV/EMTRICIT/TENOFOV (BIKTARVY) 50-200-25 MG TABLET PO SCH (10:54)
[2019-04-27] MEDS: THIAMINE HCL 100 MG TABLET (FP) PO SCH (23:44)
[2019-04-28] MEDS: chlordiazePOXIDE HCL 10 MG CAPSULE PO SCH ×2 (05:33→17:35)
[2019-04-28] MEDS ORDERED: METHADONE HCL 10 MG TABLET (FOR DETOX USE ONLY) PO ONE (10:00)
[2019-04-28] MEDS: BICTEGRAV/EMTRICIT/TENOFOV (BIKTARVY) 50-200-25 MG TABLET PO SCH ×2 (11:02→11:03)
[2019-04-28] MEDS: PRENATAL VITAMINS W/ FOLIC ACID TABLET (FP) PO SCH (11:02)
[2019-04-28] MEDS: NICOTINE 14 MG/24 HOURS TOPICAL PATCH TD SCH (11:03)
--- NOTE | 2019-04-28 11:32 | PN ---
[facility] CIWA - CIWA Score Nausea/Vomitin-Mild Nausea/No Vomiting Muscle Tremors: 1-None Visible, but [place] Anxiety: 1-Mildly Anxious Agitation: 1-Slight > Activity Paroxysmal Sweats: 1-Minimal Palms Moist Orientation: 0-Oriented Tacttile Disturbances: 1-Very Mild Itch/Numbness Auditory Disturbances: 3-Moderate Harsh/Frighten Visual Disturbances: 0-None Headache: 1-Very Mild CIWA-Ar Total Score: 10 S COWS - Scale Resting Pulse: 0= [place] 80 or Below Sweatin= Chills/Flushing Restless Observation: 1= Difficult to Sit Still Pupil Size: 0= Normal to Room Light Bone or Joint Aches: 1= Mild Discomfort Runny Nose/ Eye Tearin= None GI Upset > 30mins: 1= Stomach Cramp Tremor Observation of Outstretched Hands: 1= Tremor [place], Not Seen Yawning Observation: 0= None Anxiety or Irritability: 1=Feels Anxious/Irritable Goose Flesh Skin: 0=Smooth Skin COWS Score: 6 [facility] Progress Note (SOAP) Subjective: Mild withdrawal sx Objective: 04/28/19 11:30 Withdrawal sx Vital Signs Temperature 98.1 F 04/28/19 08:47 Pulse Rate 71 04/28/19 08:47 Respiratory Rate 18 04/28/19 08:47 Blood Pressure 109/59 L 04/28/19 08:47 O2 Sat by Pulse Oximetry (%) VSS Laboratory Last Values WBC 4.7 K/mm3 (4.0-10.0) 04/24/19 14:50 RBC 4.17 M/mm3 (4.00-5.60) 04/24/19 14:50 Hgb 12.3 GM/dL (11.7-16.9) 04/24/19 14:50 Hct 37.0 % (35.4-49) 04/24/19 14:50 MCV 88.8 fl (80-96) 04/24/19 14:50 MCH 29.5 pg (25.7-33.7) 04/24/19 14:50 MCHC 33.2 g/dl (32.0-35.9) 04/24/19 14:50 RDW 13.8 % (11.9-15.9) 04/24/19 14:50 Plt Count 187 K/MM3 (134-434) 04/24/19 14:50 MPV 8.4 fl (7.5-11.1) 04/24/19 14:50 Sodium 140 mmol/L (136-145) 04/26/19 08:00 Potassium 4.3 mmol/L (3.5-5.1) 04/26/19 08:00 Chloride 108 mmol/L (98-107) H 04/26/19 08:00 Carbon Dioxide 30 mmol/L (21-32) 04/26/19 08:00 Anion Gap 2 MMOL/L (8-16) L 04/26/19 08:00 BUN 17.3 mg/dL (7-18) 04/26/19 08:00 Creatinine 0.9 mg/dL (0.55-1.3) 04/26/19 08:00 Est GFR (CKD-EPI)AfAm 102.79 04/26/19 08:00 Est GFR (CKD-EPI)NonAf 88.69 04/26/19 08:00 Random Glucose 90 mg/dL (74-106) 04/26/19 08:00 Fasting Glucose 90 mg/dL (74-106) 04/26/19 08:00 Calcium 8.7 mg/dL (8.5-10.1) 04/26/19 08:00 Total Bilirubin 0.4 mg/dL (0.2-1) 04/24/19 14:50 AST 30 U/L (15-37) 04/24/19 14:50 ALT 21 U/L (13-61) 04/24/19 14:50 Alkaline Phosphatase 95 U/L (45-117) 04/24/19 14:50 Total Protein 8.0 g/dl (6.4-8.2) 04/24/19 14:50 Albumin 4.2 g/dl (3.4-5.0) 04/24/19 14:50 RPR Titer Nonreactive (NONREACTIVE) 04/24/19 14:50 Labs noted, no panic values Assessment: 04/28/19 11:31 Withdrawal sx Plan: Continue detox
[2019-04-28] MEDS: THIAMINE HCL 100 MG TABLET (FP) PO SCH (22:46)
[2019-04-29] MEDS ORDERED: chlordiazePOXIDE HCL 10 MG CAPSULE PO ONE (05:00)
[2019-04-29] MEDS ORDERED: METHADONE HCL 5 MG TABLET (FOR DETOX USE ONLY) PO ONE (06:00)
[2019-04-29 09:42] VITALS: BP 152/75; PULSE 76; TEMP 97.5
[2019-04-29] MEDS: PRENATAL VITAMINS W/ FOLIC ACID TABLET (FP) PO SCH (10:29)
[2019-04-29] MEDS: BICTEGRAV/EMTRICIT/TENOFOV (BIKTARVY) 50-200-25 MG TABLET PO SCH (10:29)
[2019-04-29] MEDS: NICOTINE 14 MG/24 HOURS TOPICAL PATCH TD SCH (10:29)
--- NOTE | 2019-04-29 13:04 | DS ---
[facility] Detox Discharge Summary Admission Date: 04/24/19 Discharge Date: 04/29/19 - History Present History: Alcohol Dependence, Cannabis Dependence, Cocaine Dependence, Opioid Dependence Additional Comments: Patient completed detox successfully and discharged safely. Patient instructed to follow up with PCP within one week post discharge. As per patient, he would like to go to inpatient rehab but not on the men's unit here at [facility] because the men are out of control there. He prefers to go to another inpatient rehab, [facility] has no available beds. Patient will call tomorrow to see if any available beds at [facility]. Pertinent Past History: Asthma Hepatitis C HIV Cirrhosis of liver - Physical Exam Results Vital Signs: Vital Signs Temperature 97.5 F L 04/29/19 09:13 Pulse Rate 76 04/29/19 09:13 Respiratory Rate 18 04/29/19 09:13 Blood Pressure 152/75 04/29/19 09:13 O2 Sat by Pulse Oximetry (%) Elevated b/p: denies htn, most likely due to excitement of being discharged. Follow up with PCP for monitoring. Pertinent Admission Physical Exam Findings: Withdrawal sxs Laboratory Tests 04/24/19 04/24/19 04/24/19 14:50 14:50 14:50 WBC 4.7 RBC 4.17 Hgb 12.3 Hct 37.0 MCV 88.8 MCH 29.5 MCHC 33.2 RDW 13.8 Plt Count 187 MPV 8.4 Sodium 136 Potassium 4.1 Chloride 103 Carbon Dioxide 25 Anion Gap 8 BUN 19.8 H Creatinine 1.5 H Est GFR (CKD-EPI)AfAm 55.43 Est GFR (CKD-EPI)NonAf 47.82 Random Glucose 109 H Fasting Glucose Calcium 9.0 Total Bilirubin 0.4 AST 30 ALT 21 Alkaline Phosphatase 95 Total Protein 8.0 Albumin 4.2 RPR Titer Nonreactive 04/26/19 08:00 WBC RBC Hgb Hct MCV MCH MCHC RDW Plt Count MPV Sodium 140 Potassium 4.3 Chloride 108 H Carbon Dioxide 30 Anion Gap 2 L BUN 17.3 Creatinine 0.9 Est GFR (CKD-EPI)AfAm 102.79 Est GFR (CKD-EPI)NonAf 88.69 Random Glucose 90 Fasting Glucose 90 Calcium 8.7 Total Bilirubin AST ALT Alkaline Phosphatase Total Protein Albumin RPR Titer Labs reviewed: DEIRDRE noted, encouraged PO water intake and to follow up with PCP within one week - Treatment Hospital Course: Detox Protocol Followed, Detoxed Safely, Responded well, Discharged Condition Good - Medication Discharge Medications: Ambulatory Orders Bictegrav/Emtricit/Tenofov Ala [Biktarvy 50-200-25 mg Tablet] 1 each PO DAILY Albuterol Sulfate Inhaler - [Ventolin HFA Inhaler -] 1 inh IH Q4H PRN #1 inh - Diagnosis (1) Cirrhosis of liver Status: Acute (2) Alcohol dependence with uncomplicated withdrawal Status: Acute (3) Nicotine dependence Status: Chronic Qualifiers: Nicotine product type: cigarettes Substance use status: uncomplicated Qualified Code(s): F17.210 - Nicotine dependence, cigarettes, uncomplicated (4) Opioid dependence with withdrawal Status: Acute (5) Asthma Status: Chronic Qualifiers: Asthma severity: mild Asthma persistence: intermittent Asthma complication type: uncomplicated Qualified Code(s): J45.20 - Mild intermittent asthma, uncomplicated (6) HIV (human immunodeficiency virus infection) Status: Chronic Qualifiers: HIV symptom status: unspecified Qualified Code(s): B20 - Human immunodeficiency virus [HIV] disease (7) Hepatitis C Status: Chronic Qualifiers: Viral hepatitis chronicity: chronic Hepatic coma status: without hepatic coma Qualified Code(s): B18.2 - Chronic viral hepatitis C (8) MDD (major depressive disorder), recurrent episode, severe Status: Chronic (9) cocaine dependence Status: Chronic (10) Cannabis abuse Status: Acute (11) Elevated blood-pressure reading, without diagnosis of hypertension Status: Acute - AMA Did Patient Leave Against Medical Advice: No (Instructed to follow up with PCP within one week)
== END 2019-04-29 10:50 | disposition home or self-care (01) | DRG 897 ==
LOC: YASAS 12:37 → Y6N 15:17
PROVIDERS: ADMIT Allergy & Immunology; ATTEND Allergy & Immunology
PROC: HZ2ZZZZ Detoxification Services for Substance Abuse Treatment (ICD-10-PCS; principal; 2019-04-24)
DX: F11.23 Opioid dependence with withdrawal (principal); F14.20 Cocaine dependence, uncomplicated; F33.2 Major depressive disorder, recurrent severe without psychotic features; B20 Human immunodeficiency virus [HIV] disease; F10.230 Alcohol dependence with withdrawal, uncomplicated; F12.20 Cannabis dependence, uncomplicated; F17.210 Nicotine dependence, cigarettes, uncomplicated; J45.20 Mild intermittent asthma, uncomplicated; K74.60 Unspecified cirrhosis of liver; B18.2 Chronic viral hepatitis C; R03.0 Elevated blood-pressure reading, without diagnosis of hypertension; Z91.013 Allergy to seafood
CPT/HCPCS: 36415; 80048; 80053; 82947; 85027; 86593

== ENCOUNTER 2020-10-01 10:48 | Inpatient (IN) | payer OTHER ==
[2020-10-01 11:54] VITALS: BMI 22.8
[2020-10-01] MEDS ORDERED: MAGNESIUM CITRATE 300 ML BOTTLE PO PRN (12:02)
[2020-10-01] MEDS ORDERED: cloNIDine HCL 0.1 MG TABLET PO PRN (12:02)
[2020-10-01] MEDS ORDERED: MAGNESIUM HYDROX 2400MG/30ML ORAL SUSPENSION 30 ML CUP PO PRN (12:02)
[2020-10-01] MEDS ORDERED: MENTHOL/PHENOL 1 EACH UD MM PRN (12:02)
[2020-10-01] MEDS ORDERED: methaDONE HCL 10 MG TABLET (FOR DETOX USE ONLY) PO ONE (12:02)
[2020-10-01] MEDS ORDERED: ACETAMINOPHEN 325 MG TABLET (FP) PO PRN ×2 (12:02)
[2020-10-01] MEDS ORDERED: MAG HYDROX/AL HYDROX/SIMETH 30 ML UNIT-DOSE CUP PO PRN (12:02)
[2020-10-01] MEDS ORDERED: ONDANSETRON *ODT* 4 MG TABLET SL PRN (12:02)
[2020-10-01] MEDS ORDERED: NICOTINE POLACRILEX 2 MG GUM BUC PRN (12:02)
[2020-10-01] MEDS ORDERED: BISMUTH SUBSALICYLATE 262 MG/15 ML BTL PO PRN (12:02)
[2020-10-01] MEDS: NICOTINE 7 MG/24 HOURS TOPICAL PATCH TD SCH (13:10)
[2020-10-01] MEDS: hydrOXYzine PAMOATE 25 MG CAPSULE (FP) PO PRN (13:10)
[2020-10-01 13:28] LABS: ALBUMIN 3.7 g/dl (3.4-5.0); CALCIUM 9.6 mg/dL (8.5-10.1)
[2020-10-01 13:29] LABS: HEMOGLOBIN 12.9 GM/dL (11.7-16.9); MCH 27.5 pg (25.7-33.7); MCHC 33.1 g/dl (32.0-35.9); MEAN CELL VOLUME 83.2 fl (80-96); MEAN PLT VOLUME 7.2 fl (7.5-11.1); PLATELET COUNT 236 10^3/uL (134-434); RBC 4.68 M/mm3 (4.00-5.60); RDW 14.2 % (11.9-15.9); WHITE BLOOD COUNT 4.1 K/mm3 (4.0-10.0)
[2020-10-01 13:31] LABS: CREATININE 1.1 mg/dL (0.55-1.3)
[2020-10-01 13:33] LABS: BILIRUBIN,TOTAL 0.2 mg/dL (0.2-1); TOT PROT 8.7 g/dl (6.4-8.2)
[2020-10-01] MEDS ORDERED: hydrOXYzine PAMOATE 25 MG CAPSULE (FP) PO SCH (14:00)
[2020-10-01] MEDS: THIAMINE HCL 100 MG TABLET (FP) PO SCH (22:19)
[2020-10-01] MEDS: MELATONIN 5 MG TABLETS PO SCH (22:19)
[2020-10-02] MEDS: IBUPROFEN 400 MG TABLET (FP) PO PRN ×3 (03:28→22:20)
[2020-10-02] MEDS: METHOCARBAMOL 500 MG TABLET PO PRN ×3 (03:28→22:20)
[2020-10-02] MEDS: hydrOXYzine PAMOATE 25 MG CAPSULE (FP) PO PRN ×2 (07:39→22:20)
[2020-10-02] MEDS ORDERED: methaDONE HCL 10 MG TABLET (FOR DETOX USE ONLY) ONE (09:14)
[2020-10-02] MEDS: NICOTINE 7 MG/24 HOURS TOPICAL PATCH TD SCH (10:18)
[2020-10-02] MEDS: PRENATAL VITAMINS W/ FOLIC ACID TABLET (FP) PO SCH (10:18)
[2020-10-02] MEDS ORDERED: DICYCLOMINE HCL 10 MG CAPSULE PO PRN (10:56)
[2020-10-02] MEDS: diazePAM 5 MG TABLET PO PRN (17:43)
[2020-10-02] MEDS: THIAMINE HCL 100 MG TABLET (FP) PO SCH (22:20)
[2020-10-02] MEDS: MELATONIN 5 MG TABLETS PO SCH (22:20)
[2020-10-03] MEDS: diazePAM 5 MG TABLET PO PRN ×2 (03:18→18:40)
[2020-10-03] MEDS: ALBUTEROL SO4 HFA INHALER IH PRN ×2 (08:21→20:11)
[2020-10-03] MEDS: NICOTINE 7 MG/24 HOURS TOPICAL PATCH TD SCH (10:00)
[2020-10-03] MEDS: PRENATAL VITAMINS W/ FOLIC ACID TABLET (FP) PO SCH (10:00)
[2020-10-03] MEDS ORDERED: methaDONE HCL 10 MG TABLET (FOR DETOX USE ONLY) PO ONE (10:00)
[2020-10-03] MEDS: IBUPROFEN 400 MG TABLET (FP) PO PRN (16:03)
[2020-10-03] MEDS: METHOCARBAMOL 500 MG TABLET PO PRN (18:40)
[2020-10-03] MEDS: MELATONIN 5 MG TABLETS PO SCH (22:09)
[2020-10-03] MEDS: THIAMINE HCL 100 MG TABLET (FP) PO SCH (22:09)
[2020-10-03] MEDS: hydrOXYzine PAMOATE 25 MG CAPSULE (FP) PO PRN (22:11)
[2020-10-04] MEDS: diazePAM 5 MG TABLET PO PRN ×2 (01:48→05:56)
[2020-10-04] MEDS: METHOCARBAMOL 500 MG TABLET PO PRN (05:20)
[2020-10-04 09:10] VITALS: BP 131/90; PULSE 107; TEMP 96.4
[2020-10-05] MEDS ORDERED: methaDONE HCL 10 MG TABLET (FOR DETOX USE ONLY) PO ONE (10:00)
== END 2020-10-04 09:35 | disposition left against medical advice (07) | DRG 894 ==
LOC: YASAS 10:48 → Y3N 12:33
PROVIDERS: ADMIT Allergy & Immunology; ATTEND Allergy & Immunology
PROC: HZ2ZZZZ Detoxification Services for Substance Abuse Treatment (ICD-10-PCS; principal; 2020-10-01)
DX: F11.23 Opioid dependence with withdrawal (principal); F14.20 Cocaine dependence, uncomplicated; F10.20 Alcohol dependence, uncomplicated; F12.20 Cannabis dependence, uncomplicated; F17.210 Nicotine dependence, cigarettes, uncomplicated; Z21 Asymptomatic human immunodeficiency virus [HIV] infection status; J45.20 Mild intermittent asthma, uncomplicated; R63.4 Abnormal weight loss; Z68.22 Body mass index [BMI] 22.0-22.9, adult
CPT/HCPCS: 36415; 80053; 85027; 86780; C9803; J0735; Q0162; U0003; U0005